=== PATIENT | male | born 1955 | race Caucasian/White ===

== ENCOUNTER 2018-09-13 07:26 | Day surgery (SDC) | payer OTHER ==
[2018-09-13] MEDS ORDERED: GLYCOPYRROLATE 0.2 MG/1 ML 1 ML ONE (08:48)
[2018-09-13] MEDS ORDERED: LACTATED RINGERS 1,000 ML IV.SOLN IV ONE (08:48)
[2018-09-13] MEDS ORDERED: LIDOCAINE HCL 2% PF 100MG/5ML VIAL IJ ONE (08:48)
[2018-09-13] MEDS ORDERED: PROPOFOL 500 MG/50 ML VIAL IV ONE (08:48)
--- NOTE | 2018-09-23 13:00 | GI Report ---
OPERATIVE/PROCEDURE REPORT PATIENT NAME: RAMONA VICENTE DATE OF : 1955 CHART#: [id number] DATE OF PROCEDURE: 09/13/2018 REFERRING PROVIDER: CHETNA Narayanan. PROCEDURE PERFORMED: Colonoscopy. SURGEON: Yeimi Rousseau M.D., Jose.Andrea.CFrancisca INDICATION FOR PROCEDURE: The patient is referred for screening colonoscopy. His last colonoscopy was 9 years ago. He denies family history of colorectal cancer. PROCEDURE MEDICATION: Propofol, as per Anesthesia. DESCRIPTION OF PROCEDURE: The Olympus video colonoscope was advanced through the rectum. It was slowly advanced to the cecum. There was slight redundancy. The appendiceal orifice and ileocecal valve looked normal. On slow withdrawal, the cecum, ascending colon and transverse colon, no obvious intraluminal lesions were noted. Descending colon, sigmoid: Some redundancy, no obvious intraluminal lesions were noted. Retroflexion in the rectum was normal. The patient tolerated the procedure well. FINDINGS: Normal screening colonoscopy. RECOMMENDATIONS: 1. Continue high fiber in the diet. 2. Consider relook at colon within 10 years, sooner if clinically indicated. YEIMI ROUSSEAU M.D., F.A.C.P. [place] Job#: [id number] Cc: Aneta Chaudhry NP Sent via ] [place]
== END 2018-09-13 09:45 | disposition home or self-care (01) ==
LOC: OPSURG 07:26
PROVIDERS: ATTEND Internal Medicine Gastroenterology
DX: Z12.11 Encounter for screening for malignant neoplasm of colon (principal)
CPT/HCPCS: J2001; J2704; J3490; J7120